=== PATIENT | female | born 1945 | race African-American/Black ===

== ENCOUNTER 2018-08-18 02:52 | Emergency (ER) | payer MEDICARE, MEDICAID ==
[~2018-08-18] VITALS: Ht 170.2 cm; Wt 99.8 kg
[~2018-08-18 02:52] MED LIST: ASPI81CH49 PO; ENAL20TA70 PO; FOLI1TAB6 PO; FURO40TA; GABA300C10; GLYB5TAB8 PO; HYDR-1421 PO; INSULIN N; ISOS20TA56; LORA10CA7 PO; LORA5TAB17; MELO1TAB73; NEBI10TA2 PO; NEBI20TA2; POTA-167 PO; SPIR25TA8 PO; SPIR25TA88; VALS320T13 PO; [UNRECOGNIZED DRUG - CODE] PO; [UNRECOGNIZED DRUG - OTHER]
[2018-08-18] MEDS ORDERED: GABAPENTIN 300 MG CAP PO ONE (06:45)
[2018-08-18 06:58] VITALS: BP 124/79
[2018-08-18 07:06] LABS: Basophils # (auto) 0.1 uL; Basophils % (auto) 1.1 % (0.0-2.0); Eosinophils # (auto) 0.2 uL; Eosinophils % (auto) 2.3 % (0.0-7.0); Hematocrit 36.2 % (36.0-46.0); Hemoglobin 11.7 g/dL (12.2-16.2); Lymphocytes # (auto) 1.8 uL; Mean Corpuscular Hemoglobin 27.3 pg (28.0-32.0); Mean Corpuscular Hgb Conc. 32.4 g/dL (32.0-36.0); Mean Corpuscular Volume 84.2 fL (80.0-100.0); Monocytes # (auto) 0.6 uL; Monocytes % (auto) 9.3 % (0.0-12.0); Neutrophils # (auto) 4.2 uL; Neutrophils % (auto) 61.3 % (37.0-80.0); Platelet Count (auto) 276 10^3/uL (140-450); White Blood Cell 6.9 10^3/uL (4.4-10.8)
[2018-08-18 07:08] LABS: Urine Bacteria NONE SEEN /hpf (None Seen); Urine Blood Negative /uL (Negative); Urine Specific Gravity 1.022 (1.001-1.035); Urine WBC 5 /hpf (0 - 5)
[2018-08-18 07:24] LABS: Alanine Aminotransferase 20 U/L (13-56); Albumin 3.2 g/dL (3.4-5.0); Anion Gap 7 (5-15); Aspartate Aminotransferase 14 U/L (15-37); BUN/Creatinine Ratio 21.2; Blood Urea Nitrogen 18 mg/dL (7-18); Calcium 8.6 mg/dL (8.5-10.1); Carbon Dioxide 24 mmol/L (21-32); Chloride 113 mmol/L (98-107); GFR African American 85 mL/min; GFR Non-African American 70 mL/min; Glucose 119 mg/dL (74-106); Potassium 4.1 mmol/L (3.5-5.1); Sodium 144 mmol/L (136-145)
[2018-08-18 07:25] LABS: INR 0.99 (0.9-1.15); Partial Thromboplastin Time 23.8 sec (23.64-32.05); Prothrombin Time 10.7 sec (9.06-12.60)
[2018-08-18 07:29] LABS: Alkaline Phosphatase 78 U/L (45-117); Bilirubin, Total 0.2 mg/dL (0.2-1.0); Total Protein 7.2 g/dL (6.4-8.2)
[2018-08-18] MEDS ORDERED: cefTRIAXone 1GM/50ML D5W 50 ML IV ONE (07:45)
[2018-08-18] MEDS ORDERED: FUROSEMIDE 40 MG/4 ML VIAL IV ONE (09:00)
[2018-08-18] MEDS ORDERED: MORPHINE SULF INJ 2 MG/ML SYRINGE 1ML IV PRN (10:15)
[2018-08-18] MEDS ORDERED: ONDANSETRON HCL 4 MG/2 ML VIAL IV PRN (10:15)
[2018-08-18] MEDS ORDERED: NITROGLYCERIN 0.4 MG SL TAB SL PRN (10:15)
[2018-08-18] MEDS ORDERED: DEXTROSE (50%) 50ML SYRG IV PRN (10:15)
[2018-08-18] MEDS ORDERED: ACCU-CHEK COMFORT CURVE STRIP VI SCH (11:30)
[2018-08-18] MEDS ORDERED: InsuLIN REG 1unit/0.01ml Soln (100units/ml) SC SCH ×2 (11:30→22:00)
[2018-08-18] MEDS ORDERED: LACTULOSE 20Gm/30ML SOLN PO SCH (14:00)
[2018-08-18] MEDS ORDERED: SUCRALFATE 1 GM/10 ML ORAL SUSP GT SCH (17:00)
[2018-08-18] MEDS ORDERED: PANTOPRAZOLE 40 MG TAB PO SCH (22:00)
[2018-08-18] MEDS ORDERED: MECLIZINE HCL 25 MG TAB PO SCH (22:00)
[2018-08-18] MEDS ORDERED: NEOMYCIN SULFATE 500 MG TAB PO SCH (22:00)
[2018-08-18] MEDS ORDERED: GEODON 80 MG PO SCH (22:00)
== END 2018-08-18 11:45 | disposition home or self-care (01) ==
LOC: EDBD 02:52 → ER 02:56
DX: N39.0 Urinary tract infection, site not specified (principal); R60.0 Localized edema; J44.9 Chronic obstructive pulmonary disease, unspecified; I11.0 Hypertensive heart disease with heart failure; I50.9 Heart failure, unspecified; E11.9 Type 2 diabetes mellitus without complications; K21.9 Gastro-esophageal reflux disease without esophagitis; Z79.82 Long term (current) use of aspirin; Z79.4 Long term (current) use of insulin; Z79.899 Other long term (current) drug therapy
CPT/HCPCS: 36415; 71045; 80053; 81001; 83880; 84484; 85025; 85610; 85730; 93971; 96365; 96375; 99284; J0696; J1940